=== PATIENT | female | born 1985 | race Caucasian/White ===

== ENCOUNTER 2018-11-02 16:36 | Outpatient (CLI) | payer BC ==
[~2018-11-02] VITALS: Ht 177.8 cm; Wt 82.3 kg
[~2018-11-02 16:36] MED LIST: DOCU-131 PO; IBUP-1222 PO; OXYC-302 PO; PREN1TAB60 PO; RANI150T23 PO
[2018-11-02 16:59] VITALS: BP 125/80
[2018-11-02 17:54] LABS: BASOPHILS # (AUTO) 0.03 x10^3/uL (0-0.1); BASOPHILS % (AUTO) 0 % (0-1); EOSINOPHILS % (AUTO) 2 % (1-7); LYMPHOCYTES # (AUTO) 2.14 x10^3/uL (1-3.4); LYMPHOCYTES % (AUTO) 17 % (22-44); MD NO; MEAN CORPUSCULAR HEMOGLOBIN 30.9 pg (27.0-34.8); MEAN CORPUSCULAR HGB CONC 33.6 g/dL (32.4-35.8); MEAN PLATELET VOLUME 8.9 fL (7.4-10.4); MONOCYTES % (AUTO) 6 % (2-9); NEUTROPHILS # (AUTO) 9.51 x10^3/uL (1.8-6.8); NEUTROPHILS % (AUTO) 76 % (42-75); PLATELET COUNT 219 x10^3/uL (130-400); RED BLOOD COUNT 4.53 x10^6/uL (3.82-5.3); RED CELL DISTRIBUTION WIDTH 13.5 % (9.6-15.2)
[2018-11-02 18:05] LABS: ALANINE AMINOTRANSFERASE 16 U/L (12-78); ALBUMIN 2.9 g/dL (3.4-5.0); ANION GAP 9 mmol/L (5-15); CALCIUM 8.5 mg/dL (8.5-10.1); CHLORIDE 107 mmol/L (98-107); CREATININE 0.68 mg/dL (0.55-1.02)
[2018-11-02 18:06] LABS: BILIRUBIN, DIRECT < 0.1 mg/dL (0.1-0.2)
[2018-11-02 18:07] LABS: MICROSCOPIC INDICATED
[2018-11-02 18:08] LABS: ALKALINE PHOSPHATASE 164 U/L (45-117); BILIRUBIN,TOTAL 0.3 mg/dL (0.2-1.0); TOTAL PROTEIN 6.7 g/dL (6.4-8.2)
== END 2018-11-02 18:26 | disposition home or self-care (01) ==
LOC: LDOP 16:36
PROVIDERS: ATTEND Obstetrics & Gynecology
DX: O26.893 Other specified pregnancy related conditions, third trimester (principal); R03.0 Elevated blood-pressure reading, without diagnosis of hypertension; Z3A.39 39 weeks gestation of pregnancy
CPT/HCPCS: 36415; 59025; 80053; 81001; 82248; 82570; 84156; 84550; 85025; 99211; G0463

== ENCOUNTER 2018-11-05 19:59 | Outpatient (CLI) | payer BC ==
[~2018-11-05] VITALS: Ht 177.8 cm; Wt 82.7 kg
[2018-11-05 20:43] VITALS: BP 119/72
[2018-11-05 20:49] LABS: MICROSCOPIC AUTO
[2018-11-05 21:07] LABS: BASOPHILS # (AUTO) 0.04 x10^3/uL (0-0.1); BASOPHILS % (AUTO) 0 % (0-1); EOSINOPHILS # (AUTO) 0.15 x10^3/uL (0-0.4); EOSINOPHILS % (AUTO) 1 % (1-7); LYMPHOCYTES # (AUTO) 2.53 x10^3/uL (1-3.4); LYMPHOCYTES % (AUTO) 19 % (22-44); MD NO; MEAN CORPUSCULAR HEMOGLOBIN 30.8 pg (27.0-34.8); MEAN CORPUSCULAR HGB CONC 33.3 g/dL (32.4-35.8); MEAN CORPUSCULAR VOLUME 92.2 fL (80-100); MEAN PLATELET VOLUME 9.1 fL (7.4-10.4); MONOCYTES # (AUTO) 0.71 x10^3/uL (0.2-0.8); MONOCYTES % (AUTO) 5 % (2-9); NEUTROPHILS # (AUTO) 10.02 x10^3/uL (1.8-6.8); NEUTROPHILS % (AUTO) 75 % (42-75); PLATELET COUNT 192 x10^3/uL (130-400); RED BLOOD COUNT 4.48 x10^6/uL (3.82-5.3); RED CELL DISTRIBUTION WIDTH 13.3 % (9.6-15.2)
[2018-11-05 21:19] LABS: ALANINE AMINOTRANSFERASE 18 U/L (12-78); ALBUMIN 2.8 g/dL (3.4-5.0); ANION GAP 10 mmol/L (5-15); BILIRUBIN, DIRECT < 0.1 mg/dL (0.1-0.2); CALCIUM 9.3 mg/dL (8.5-10.1); CHLORIDE 107 mmol/L (98-107)
[2018-11-05 21:24] LABS: ALKALINE PHOSPHATASE 167 U/L (45-117); BILIRUBIN,TOTAL 0.2 mg/dL (0.2-1.0); TOTAL PROTEIN 6.6 g/dL (6.4-8.2)
== END 2018-11-05 22:32 | disposition home or self-care (01) ==
LOC: LDOP 19:59
PROVIDERS: ATTEND Obstetrics & Gynecology
DX: O13.3 Gestational [pregnancy-induced] hypertension without significant proteinuria, third trimester (principal); Z3A.39 39 weeks gestation of pregnancy
CPT/HCPCS: 36415; 59025; 76815; 80053; 81001; 82248; 82570; 84156; 84550; 85025; 99211; G0463

== ENCOUNTER 2018-11-07 09:21 | Inpatient (IN) | payer BC ==
[~2018-11-07] VITALS: Ht 177.8 cm; Wt 82.7 kg
[2018-11-07] MEDS ORDERED: OXYTOCIN 30U/ 0.9% NaCL 500ML 500 ML IV PRN (09:24)
[2018-11-07] MEDS ORDERED: D5%-LACTATED RINGERS 1,000 ML IV SCH (09:24)
[2018-11-07] MEDS ORDERED: OXYTOCIN 30U/ 0.9% NaCL 500ML 500 ML IV ONE (09:24)
[2018-11-07] MEDS ORDERED: ONDANSETRON 2MG/ML, 2ML IVPush PRN (09:30)
[2018-11-07] MEDS ORDERED: CALCIUM CARBONATE 500 MG TAB.CHEW PO PRN ×2 (09:30→19:00)
[2018-11-07] MEDS ORDERED: FENTANYL PF 100 MCG/2ML IV PRN (09:30)
[2018-11-07] MEDS ORDERED: FENTANYL PF 100 MCG/2ML IVPush PRN (09:30)
[2018-11-07] MEDS ORDERED: NEWBORN KIT ONE (09:42)
[2018-11-07] MEDS ORDERED: OXYTOCIN 30U/ 0.9% NaCL 500ML 500 ML ONE ×2 (09:42→19:07)
[2018-11-07] MEDS ORDERED: MISOPROSTOL 200 MCG TABLET ONE (09:43)
[2018-11-07] MEDS ORDERED: LIDOCAINE 1%, 20ML ONE (09:43)
[2018-11-07 09:45] VITALS: BP 134/83
[2018-11-07 09:58] LABS: BASOPHILS # (AUTO) 0.04 x10^3/uL (0-0.1); BASOPHILS % (AUTO) 0 % (0-1); EOSINOPHILS # (AUTO) 0.06 x10^3/uL (0-0.4); EOSINOPHILS % (AUTO) 1 % (1-7); LYMPHOCYTES % (AUTO) 16 % (22-44); MD NO; MEAN CORPUSCULAR HEMOGLOBIN 31.2 pg (27.0-34.8); MEAN CORPUSCULAR HGB CONC 34.2 g/dL (32.4-35.8); MEAN CORPUSCULAR VOLUME 91.2 fL (80-100); MEAN PLATELET VOLUME 9.7 fL (7.4-10.4); MONOCYTES # (AUTO) 0.52 x10^3/uL (0.2-0.8); MONOCYTES % (AUTO) 4 % (2-9); NEUTROPHILS # (AUTO) 9.25 x10^3/uL (1.8-6.8); NEUTROPHILS % (AUTO) 79 % (42-75); PLATELET COUNT 217 x10^3/uL (130-400); RED BLOOD COUNT 4.63 x10^6/uL (3.82-5.3); RED CELL DISTRIBUTION WIDTH 13.5 % (9.6-15.2)
[2018-11-07] MEDS: LACTATED RINGERS 1,000 ML IV SCH ×2 (10:00→18:29)
[2018-11-07] MEDS ORDERED: FENTANYL PF 100 MCG/2ML ONE (17:23)
[2018-11-07] MEDS ORDERED: MISOPROSTOL 200 MCG TABLET PO PRN (19:00)
[2018-11-07] MEDS ORDERED: ONDANSETRON 2MG/ML, 2ML IV PRN (19:00)
[2018-11-07] MEDS ORDERED: METHYLERGONOVINE 0.2 MG/ML IM PRN (19:00)
[2018-11-07] MEDS ORDERED: ACETAMINOPHEN 325 MG TABLET PO PRN (19:00)
[2018-11-07] MEDS ORDERED: IBUPROFEN 600 MG TABLET ONE (19:07)
[2018-11-07] MEDS: IBUPROFEN 600 MG TABLET PO PRN (19:09)
[2018-11-07] MEDS: OXYTOCIN 30U/ 0.9% NaCL 500ML 500 ML IV SCH (19:10)
[2018-11-07 21:00] VITALS: BP 124/76
[2018-11-07] MEDS: OXYcodone/APAP 5/325MG TABLET PO PRN (22:06)
[2018-11-07] MEDS: DOCUSATE 100 MG CAPSULE PO PRN (22:30)
[2018-11-08 00:15] VITALS: BP 114/66
[2018-11-08 02:47] LABS: MEAN CORPUSCULAR HEMOGLOBIN 31.3 pg (27.0-34.8); MEAN CORPUSCULAR HGB CONC 33.8 g/dL (32.4-35.8); MEAN CORPUSCULAR VOLUME 92.7 fL (80-100); MEAN PLATELET VOLUME 9.4 fL (7.4-10.4); PLATELET COUNT 202 x10^3/uL (130-400); RED BLOOD COUNT 3.93 x10^6/uL (3.82-5.3)
[2018-11-08 03:00] LABS: BASOPHILS # (AUTO) 0.05 x10^3/uL (0-0.1); BASOPHILS % (AUTO) 0 % (0-1); EOSINOPHILS # (AUTO) 0.02 x10^3/uL (0-0.4); EOSINOPHILS % (AUTO) 0 % (1-7); LYMPHOCYTES # (AUTO) 1.82 x10^3/uL (1-3.4); LYMPHOCYTES % (AUTO) 9 % (22-44); MD SCAN; MONOCYTES # (AUTO) 0.97 x10^3/uL (0.2-0.8); MONOCYTES % (AUTO) 5 % (2-9); NEUTROPHILS # (AUTO) 16.44 x10^3/uL (1.8-6.8); NEUTROPHILS % (AUTO) 85 % (42-75)
[2018-11-08] MEDS: OXYcodone/APAP 5/325MG TABLET PO PRN (04:07)
[2018-11-08] MEDS: IBUPROFEN 600 MG TABLET PO PRN (04:07)
[2018-11-08 04:20] VITALS: BP 122/76
[2018-11-08] MEDS: OXYTOCIN 30U/ 0.9% NaCL 500ML 500 ML IV SCH (04:51)
[2018-11-08 07:07] VITALS: BP 118/72
[2018-11-08] MEDS: DOCUSATE 100 MG CAPSULE PO PRN (07:34)
[2018-11-08] MEDS ORDERED: OXYcodone/APAP 5/325MG TABLET PO PRN (08:30)
[2018-11-08] MEDS ORDERED: PRENATAL VIT/IRON/FA 1 EACH TABLET PO SCH (09:00)
[2018-11-08] MEDS ORDERED: IBUP-1222 PO (11:42)
== END 2018-11-08 12:43 | disposition home or self-care (01) | DRG 807 ==
LOC: LDIP 09:21 → 2NW 20:40
PROVIDERS: ADMIT Obstetrics & Gynecology; ATTEND Obstetrics & Gynecology
PROC: 10E0XZZ Delivery of Products of Conception, External Approach (ICD-10-PCS; principal; 2018-11-07)
DX: O69.81X0 Labor and delivery complicated by cord around neck, without compression, not applicable or unspecified (principal); Z37.0 Single live birth; Z83.3 Family history of diabetes mellitus; Z82.49 Family history of ischemic heart disease and other diseases of the circulatory system; Z3A.39 39 weeks gestation of pregnancy
CPT/HCPCS: 36415; 85025; 86850; 86900; G0378; J3010; J2590; J7120